=== PATIENT | female | born 1975 | race Caucasian/White ===

== ENCOUNTER 2016-09-19 17:53 | Emergency (ER) | payer MEDICAID ==
[~2016-09-19] VITALS: Ht 172.7 cm; Wt 79.5 kg
[~2016-09-19 17:53] MED LIST: NAPR500T PO; No meds per pt.
[2016-09-19] MEDS ORDERED: SODIUM CHLORIDE 0.9% 1,000 ML IV ONE (18:31)
[2016-09-19] MEDS ORDERED: ONDANSETRON 2MG/ML, 2ML ONE (18:38)
[2016-09-19] MEDS ORDERED: MECLIZINE CHEWABLE 25 MG TAB ONE (18:38)
[2016-09-19] MEDS ORDERED: ONDANSETRON 2MG/ML, 2ML IVPush ONE (19:00)
[2016-09-19] MEDS ORDERED: MECLIZINE CHEWABLE 25 MG TAB PO ONE (19:00)
[2016-09-19] MEDS ORDERED: SODIUM CHLORIDE FLUSH 10ML SYR IVF ONE (19:00)
[2016-09-19] MEDS ORDERED: SODIUM CHLORIDE 0.9% 1,000ML IVBOLUS ONE (19:00)
[2016-09-19 19:03] LABS: BLOOD UREA NITROGEN 14 mg/dL (7-18)
[2016-09-19] MEDS ORDERED: MORPHINE SULFATE 4 MG/ML, 1ML ONE ×2 (19:51→20:16)
[2016-09-19] MEDS: MORPHINE SULFATE 4 MG/ML, 1ML IVPush PRN ×2 (19:57→20:18)
[2016-09-19] MEDS ORDERED: PROP10TA PO (20:20)
[2016-09-19 21:06] VITALS: BP 146/71
== END 2016-09-19 21:14 | disposition home or self-care (01) ==
LOC: ED 19:49
DX: G43.009 Migraine without aura, not intractable, without status migrainosus (principal); I10 Essential (primary) hypertension; R42 Dizziness and giddiness
CPT/HCPCS: 36415; 70450; 71010; 80048; 82040; 85025; 93005; 96361; 96374; 96375; 99285; J2405; J7030

== ENCOUNTER 2017-04-18 17:16 | Emergency (ER) | payer MEDICAID ==
[~2017-04-18] VITALS: Ht 175.3 cm; Wt 95.6 kg
[~2017-04-18 17:16] MED LIST changes: +NAPR-856 PO; -NAPR500T PO; +PROP10TA PO
[2017-04-18 17:21] VITALS: BP 173/103
[2017-04-18] MEDS ORDERED: IBUPROFEN 200 MG TABLET ONE (18:12)
[2017-04-18] MEDS ORDERED: ACETAMINOPHEN 500 MG TABLET ONE (18:13)
[2017-04-18] MEDS ORDERED: IBUPROFEN 200 MG TABLET PO ONE (18:30)
[2017-04-18] MEDS ORDERED: ACETAMINOPHEN 500 MG TABLET PO ONE (18:30)
[2017-04-18 18:31] LABS: BASOPHILS # (AUTO) 0.08 x10^3/uL (0-0.1); BASOPHILS % (AUTO) 1 % (0-1); EOSINOPHILS # (AUTO) 0.26 x10^3/uL (0-0.4); EOSINOPHILS % (AUTO) 3 % (1-7); LYMPHOCYTES # (AUTO) 4.05 x10^3/uL (1-3.4); LYMPHOCYTES % (AUTO) 41 % (22-44); MD NO; MEAN CORPUSCULAR HEMOGLOBIN 31.5 pg (27.0-34.8); MEAN CORPUSCULAR HGB CONC 34.5 g/dL (32.4-35.8); MEAN CORPUSCULAR VOLUME 91.3 fL (80-100); MEAN PLATELET VOLUME 8.1 fL (7.4-10.4); MONOCYTES # (AUTO) 1.22 x10^3/uL (0.2-0.8); MONOCYTES % (AUTO) 12 % (2-9); NEUTROPHILS # (AUTO) 4.31 x10^3/uL (1.8-6.8); NEUTROPHILS % (AUTO) 43 % (42-75); PLATELET COUNT 269 x10^3/uL (130-400); RED BLOOD COUNT 4.56 x10^6/uL (3.82-5.3); RED CELL DISTRIBUTION WIDTH 13.3 % (9.6-15.2)
[2017-04-18 18:35] LABS: ALBUMIN 3.6 g/dL (3.4-5.0); ANION GAP 7 mmol/L (5-15); CALCIUM 8.9 mg/dL (8.5-10.1); CHLORIDE 108 mmol/L (98-107); CREATININE 0.89 mg/dL (0.55-1.02)
[2017-04-18 18:39] LABS: TROPONIN I < 0.015 ng/mL (0.000-0.045)
== END 2017-04-18 19:28 | disposition home or self-care (01) ==
LOC: ED 19:10
DX: M25.512 Pain in left shoulder (principal); I10 Essential (primary) hypertension; Z98.51 Tubal ligation status
CPT/HCPCS: 36415; 72050; 80048; 82040; 84484; 85025; 93005; 99285

== ENCOUNTER 2017-08-04 16:00 | Emergency (ER) | payer MEDICAID ==
[~2017-08-04] VITALS: Ht 175.3 cm; Wt 93.7 kg
[2017-08-04 16:02] VITALS: BP 159/85
== END 2017-08-04 20:11 | disposition home or self-care (01) ==
LOC: ED 19:00
DX: G56.03 Carpal tunnel syndrome, bilateral upper limbs (principal); M54.30 Sciatica, unspecified side; G43.909 Migraine, unspecified, not intractable, without status migrainosus; F32.9 Major depressive disorder, single episode, unspecified
CPT/HCPCS: 99284

== ENCOUNTER 2017-11-10 08:14 | Emergency (ER) | payer MEDICAID ==
[~2017-11-10] VITALS: Ht 174 cm; Wt 93.7 kg
[2017-11-10] MEDS ORDERED: METOCLOPRAMIDE 5 MG/ML, 2ML ONE (08:48)
[2017-11-10] MEDS ORDERED: SUMATRIPTAN 6MG/0.5ML SQ ONE ×2 (08:48→09:00)
[2017-11-10] MEDS ORDERED: KETOROLAC 30 MG/1 ML ONE (08:48)
[2017-11-10] MEDS ORDERED: ACETAMINOPHEN 500 MG TABLET ONE (08:48)
[2017-11-10] MEDS ORDERED: DEXAMETHASONE 4 MG/ML, 5ML ONE (08:48)
[2017-11-10] MEDS ORDERED: DIPHENHYDRAMINE 50 MG/ML, 1ML ONE (08:48)
[2017-11-10] MEDS ORDERED: SODIUM CHLORIDE 0.9% 1,000ML IVBOLUS ONE (09:00)
[2017-11-10] MEDS ORDERED: DIPHENHYDRAMINE 50 MG/ML, 1ML IVPush ONE (09:00)
[2017-11-10] MEDS ORDERED: ACETAMINOPHEN 325 MG TABLET PO ONE (09:00)
[2017-11-10] MEDS ORDERED: DEXAMETHASONE 4 MG/ML, 1ML IVPush ONE (09:00)
[2017-11-10] MEDS ORDERED: KETOROLAC 30 MG/1 ML IVPush ONE (09:00)
[2017-11-10] MEDS ORDERED: METOCLOPRAMIDE 5 MG/ML, 2ML IVPush ONE (09:00)
[2017-11-10] MEDS ORDERED: SODIUM CHLORIDE FLUSH 10ML SYR IVF ONE (09:00)
[2017-11-10 09:57] VITALS: BP 165/81
== END 2017-11-10 10:35 | disposition home or self-care (01) ==
LOC: ED 10:29
DX: G43.119 Migraine with aura, intractable, without status migrainosus (principal); I10 Essential (primary) hypertension; G89.29 Other chronic pain
CPT/HCPCS: 96372; 96374; 96375; 99284; J1100; J1200; J1885; J2765; J3030; J7030

== ENCOUNTER 2018-11-10 04:27 | Emergency (ER) | payer MEDICAID, OTHER ==
[~2018-11-10] VITALS: Ht 175.3 cm; Wt 96.0 kg
[2018-11-10 07:51] VITALS: BP 155/92
== END 2018-11-10 08:44 | disposition home or self-care (01) ==
LOC: ED 05:19
DX: N30.00 Acute cystitis without hematuria (principal); G43.909 Migraine, unspecified, not intractable, without status migrainosus; I10 Essential (primary) hypertension; R19.7 Diarrhea, unspecified
CPT/HCPCS: 36415; 70450; 80053; 81001; 84703; 85025; 87086; 93005; 96361; 96374; 96375; 99284; J1100; J1885; J2765; J7030